=== PATIENT | female | born 1955 | race Caucasian/White ===

== ENCOUNTER 2022-05-15 07:45 | Outpatient (CLI) | payer OTHER ==
[2022-05-15] MEDS ORDERED: Iopamidol-370 76% 500 ML 1 ML ONE (15:19)
== END 2022-05-15 07:46 | disposition home or self-care (01) ==
LOC: BICCT 07:45
PROVIDERS: ATTEND Otolaryngology Plastic Surgery within the Head & Neck
DX: K11.23 Chronic sialoadenitis (principal); J38.7 Other diseases of larynx
CPT/HCPCS: 70492; 82565